=== PATIENT | female | born 1970 | race Caucasian/White ===

== ENCOUNTER 2021-12-28 20:23 | Emergency (ER) | payer SELFPAY ==
[~2021-12-28] VITALS: Ht 160 cm; Wt 63.5 kg
[2021-12-28 20:32] VITALS: BP_SYST 131
--- NOTE | 2021-12-28 20:32 | NUR ---
Patient to [facility] for evaluation.
--- NOTE | 2021-12-28 20:35 | NUR ---
patient brought in by [facility]'s department deputy for medical clearance. Patient has hx of HTN. voiced no complaints. Pain 0/10
--- NOTE | 2021-12-28 20:40 | NUR ---
ER at bedside examining patient.
[2021-12-28 20:59] VITALS: BP_SYST 131
--- NOTE | 2021-12-28 20:59 | NUR ---
Patient AND DEPUTY given written and verbal discharge instructions and verbalizes understanding. ER MD discussed with patient the results and treatment provided. Patient in stable condition. ID arm band removed. Patient educated on pain management and to follow up with PMD. Pain Scale 0/10 Opportunity for questions provided and answered. Medication side effect fact sheet provided.
== END 2021-12-28 20:59 ==
LOC: SED 20:23
DX: Z02.89 Encounter for other administrative examinations (principal); I10 Essential (primary) hypertension
CPT/HCPCS: 99283